=== PATIENT | female | born 1960 | race Caucasian/White ===

== ENCOUNTER 2024-05-25 18:23 | Emergency (ER) | payer OTHER, SELFPAY ==
[2024-05-25 18:26] VITALS: BP 142/86; PULSE 97; RESP 20; TEMP 36.4; O2SAT 95; O2SAT 96
--- NOTE | 2024-05-25 18:44 | EKG12_ITS ---
Test Reason : CP Blood Pressure : / mmHG Vent. Rate : 094 BPM Atrial Rate : 094 BPM P-R Int : 148 ms QRS Dur : 074 ms QT Int : 352 ms P-R-T Axes : 073 065 066 degrees QTc Int : 440 ms Sinus rhythm with frequent Premature ventricular complexes Septal infarct , age undetermined Abnormal ECG Confirmed by ELISSA MARTINEZ, KRISTAL ([id number]), editor city MICHLE HIGGINS ([id number]) on 05/26/2024 9:39:56 AM Referred By: DESI Confirmed By:KRISTAL BOWERS MD
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
[2024-05-25] MEDS: fentaNYL 100 MCG/2 ML Ampul 50 MCG IV (18:54)
[2024-05-25] MEDS: Ondansetron 4 MG/2 ML Vial IV (18:54)
[2024-05-25] MEDS: Lidocaine 1% /Epi 1:100 (20ml) 20 ML Vial 10 ML INFILT (18:55)
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
[2024-05-25 19:20] LABS: Absolute Lymphocyte Count 2.69 X10^3/uL (0.83-4.51); Absolute Neutrophil Count 10.3 X10^3/uL (2.0-7.7); Basophil# 0.07 X10^3/uL; Basophil% 0.5 % (0-1); Eosinophils% 0.7 % (0-5); Hematocrit 42.9 % (37-47); Hemoglobin 14.1 g/dL (12.0-15.0); Lymphocyte # 2.69 X10^3/ul (0.83-4.51); Lymphocyte % 18.9 % (19-41); Mean Corp Hgb Conc 32.9 g/dL (32-36); Mean Corpuscular Hgb 30.8 pg (27.0-32.0); Mean Corpuscular Volume 93.7 fL (81-99); Mean Platelet Vol. 10.5 fl (6.2-12.0); Monocyte# 0.88 X10^3/uL; Monocyte% 6.2 % (0-10); NRBC Flagged by Analyzer 0 % (0-5); Neutrophil # 10.34 X10^3/uL (2.7-7.7); Neutrophil % 72.9 % (47-70); Platelet Count 240 K/mm3 (150-450); RBC Distribution Width CV 14.3 % (11.6-14.6); RBC Distribution Width SD 49.1 fl (35.1-43.9); Red Blood Count 4.58 M/mm3 (4.2-5.4); White Blood Count 14.2 K/mm3 (4.4-11.0)
[2024-05-25 19:38] VITALS: BP 113/74; PULSE 90; RESP 15; O2SAT 96
[2024-05-25 19:44] LABS: ALB/GLOB Ratio 0.9 RATIO (0.9-2.4); AST(SGOT) 28 U/L (15-37); Alanine Aminotransfer ALT/SGPT 31 U/L (13-56); Albumin, Serum 3.4 g/dL (3.2-5.0); Alkaline Phosphatase 88 U/L (45-117); Anion Gap 8 (5-15); BUN 13 mg/dL (7-18); BUN/Creat Ratio 17.3 RATIO (10-20); Calcium,Total 8.7 mg/dL (8.5-10.1); Chloride 110 mmol/L (98-107); Creatinine, Serum 0.75 mg/dL (0.55-1.02); EST Glomerular Filtration Rate 83 mL/min (>60); Est Glom Filt Rate - Afr Amer 100 mL/min (>60); Globulin 3.7 g/dL (2.2-4.2); Glucose 97 mg/dL (74-106); Potassium 3.6 mmol/L (3.5-5.1); Protein, Total 7.1 g/dL (6.4-8.2); Sodium Level 140 mmol/L (136-145)
[2024-05-25 20:09] VITALS: BP 134/72; PULSE 86; RESP 21; O2SAT 96
[2024-05-25] MEDS: Ketorolac 30 MG/ML Syringe IV (20:35)
[2024-05-25 20:39] VITALS: BP 132/65; PULSE 70; RESP 16; TEMP 37.3; O2SAT 99
== END 2024-05-25 20:45 | disposition home or self-care (01) ==
PROVIDERS: Emergency Provider Emergency Medicine; Visit Provider Emergency Medicine
DX: S01.01XA Laceration without foreign body of scalp, initial encounter (principal); L40.50 Arthropathic psoriasis, unspecified; R26.2 Difficulty in walking, not elsewhere classified; F17.210 Nicotine dependence, cigarettes, uncomplicated; S29.019A Strain of muscle and tendon of unspecified wall of thorax, initial encounter; S20.20XA Contusion of thorax, unspecified, initial encounter; W23.1XXA Caught, crushed, jammed, or pinched between stationary objects, initial encounter
CPT/HCPCS: 12002; 70450; 71260; 72125; 72128; 74177; 80053; 85025; 93005; 96374; 96375; 99283; Q9967; A4216; J2405